=== PATIENT | female | born 1980 | race Hispanic/Latino ===

== ENCOUNTER → 2019-12-25 | Outpatient (CLI) | payer MEDICAID ==
[~2019-12-25] MED LIST: HYDR-4068 PO; LOVA10TA2 PO; METF-446 PO
== END | disposition home or self-care (01) ==
LOC: RAH 08:36
PROVIDERS: ATTEND Family Medicine
DX: M79.641 Pain in right hand (principal); M25.531 Pain in right wrist
CPT/HCPCS: 73110; 73130